=== PATIENT | male | born 1950 | race Caucasian/White ===

== ENCOUNTER → 2018-03-25 11:13 | Outpatient (CLI) | payer MEDICARE, OTHER, SELFPAY ==
--- NOTE | 2018-03-25 10:28 | PET_ITS ---
EXAMINATION: FDG PET/CT INDICATIONS: A 67-year-old male with history of pulmonary nodularity. COMPARISON EXAMINATION: CT of the chest report dated 03/06/18 TECHNIQUE: Following the intravenous administration of 11.11 mCi of F-18 deoxyglucose via the right wrist, multiplanar image acquisitions of the neck, chest, abdomen and pelvis to level of mid thigh, obtained at one hour post radiopharmaceutical administration contemporaneously interpreted with the current CT of the neck, chest, abdomen and pelvis to level of mid thigh, dated 03/25/[address] of the chest report dated 03/06/18 reveal: SERUM GLUCOSE LEVEL: 82 mg/dl. HEIGHT: 71 inches. WEIGHT: 200 lbs. FINDINGS: 1. There is no quantitative scintigraphic evidence of abnormal increased glucose metabolism within the context of the bilateral hemithorax pulmonary parenchyma to correlate with structural changes noted on review of CT of the thorax dated 03/25/18. 2. Normal physiologic distribution of the radiopharmaceutical is apparent in the hepatic and splenic parenchyma, both renal units, bladder and visualized intestinal tract. The visualized portion of the cerebral cortex demonstrate symmetric and preserved glucose metabolism. Diffuse radiopharmaceutical concentration is noted in all four quadrants of the abdomen and pelvis. Pertinent CT findings are as follows: CHEST: Emphysematous change is noted in the bilateral upper-mid lung zones. There is atherosclerotic calcification defined in the thoracic aorta without evidence of dilatation-aneurysm formation. Coronary arterial calcification is observed. Bilateral axillary soft tissue densities with fatty hilus formation are non-glucose avid. Subcentimeter mediastinal soft tissue is ametabolic. ABDOMEN AND PELVIS: The gallbladder is surgically absent. There is borderline fatty metamorphosis-steatosis defined in the hepatic parenchyma. There is atherosclerotic calcification defined in the abdominal aorta without evidence of dilatation-aneurysm formation. Pelvic arterial calcification is observed. A fat containing left inguinal hernia is noted. Right-left inguinal soft tissue densities are non-glucose avid. SKELETAL: Degenerative changes are noted in the cervical, thoracic and lumbar spine. PET/PET/CT Tumor Base -Thigh Init IMPRESSION: 1. NEGATIVE EXAMINATION. There is no quantitative scintigraphic evidence of abnormal increased glucose metabolism within the context of the bilateral hemithorax pulmonary parenchyma to correlate with structural changes noted on review of CT of the thorax dated 03/25/18. 2. Anatomic stability may be ensured in the ametabolic bilateral hemithorax pulmonary parenchymal densities with repeat CT of the thorax in three months. (Nga, [employer] in Thoracic [facility] Cardiovascular Surgery 14:292, 2002) Electronic Signature Mich Tamez D.O. Electronically Signed: Mich Tamez DO at 23:50 EDT Tel , Service support ,
== END ==
PROVIDERS: Visit Provider Internal Medicine Pulmonary Disease
DX: R91.1 Solitary pulmonary nodule (principal)
CPT/HCPCS: 78815; A9552